=== PATIENT | female | born 1995 | race African-American/Black ===

== ENCOUNTER 2017-07-22 12:27 | Emergency (ER) | payer MEDICAID, OTHER ==
[~2017-07-22] VITALS: Ht 165.1 cm; Wt 64.0 kg
[~2017-07-22 12:27] MED LIST: [UNRECOGNIZED DRUG - OTHER]
[2017-07-22 12:30] VITALS: BP 137/63
== END 2017-07-22 14:01 | disposition home or self-care (01) ==
LOC: ER 12:35
DX: L50.9 Urticaria, unspecified (principal)
CPT/HCPCS: 99283